=== PATIENT | male | born 1965 | race Caucasian/White ===

== ENCOUNTER 2017-05-25 12:41 | Emergency (ER) | payer OTHER ==
[~2017-05-25] VITALS: Ht 182.9 cm; Wt 95.9 kg
[2017-05-25 12:47] VITALS: BP 122/77
[2017-05-25] MEDS ORDERED: MOTRIN800 MG PO (14:13)
== END 2017-05-25 14:25 | disposition home or self-care (01) ==
LOC: EME 12:41 → EXP 13:15
DX: M25.561 Pain in right knee (principal); M25.562 Pain in left knee; V49.9XXA Car occupant (driver) (passenger) injured in unspecified traffic accident, initial encounter; F17.200 Nicotine dependence, unspecified, uncomplicated
CPT/HCPCS: 73564; 99281; 99283